=== PATIENT | male | born 1965 | race Caucasian/White ===

== ENCOUNTER 2022-01-23 07:26 | Emergency (ER) | payer OTHER ==
[2022-01-23 07:56] LABS: BASOPHIL 0 % (0-2); EOSINOPHIL 0.7 % (0-5); HCT 19.2 % (42.0-52.0); LYMPHOCYTE 59.7 % (15-48); MCH 29.6 pg (25.0-31.0); MCHC 32.8 g/dL (32.0-36.0); MCV 90.1 fL (78.0-100.0); MONOCYTE 19.4 % (0-12); MPV 11.2 fL (6.0-9.5); NEUTROPHIL 15.7 % (41-80); NRBC 1.5; RBC 2.13 M/uL (4.70-6.00); RDW 14.6 % (11.5-14.0)
[2022-01-23 07:59] LABS: HGB 6.3 g/dl (13.2-18.0); PLT 10 K/uL (150-400); WBC 1.3 K/uL (4.0-10.5)
[2022-01-23 08:00] LABS: INR 2.36 (0.9-1.2); PROTHROMBIN TIME 24.9 SECONDS (11.8-13.4); PTT 44.9 SECONDS (24.4-34.7)
[2022-01-23 08:13] LABS: ALBUMIN 1.1 g/dL (3.4-5.0); BILIRUBIN - TOTAL 0.4 mg/dL (0.2-1.0); BUN/CREAT RATIO (CALC) 18.1 RATIO; CREATININE 1.38 mg/dL (0.67-1.17); GLOBULIN (CALCULATION) 2.5 g/dL; TOTAL PROTEIN 3.6 g/dL (6.4-8.2)
[2022-01-23 08:15] LABS: D-DIMER 10.78 ug/mLFEU (0.00-0.41)
[2022-01-23 08:16] LABS: POTASSIUM 6.8 mmol/L (3.5-5.1)
== END 2022-01-23 10:09 | disposition expired ==
LOC: FER 07:26
PROVIDERS: Emergency Medicine
DX: I46.9 Cardiac arrest, cause unspecified (principal)
CPT/HCPCS: 36415; 36600; 80053; 82550; 82553; 82803; 83605; 84484; 85025; 85379; 85610; 85730; 92950; J0171; J0282; J0610